=== PATIENT | female | born 1985 | race Hispanic/Latino ===

== ENCOUNTER 2023-10-03 20:40 | Emergency (ER) | payer OTHER ==
[~2023-10-03] VITALS: Ht 154.9 cm; Wt 109.8 kg
[2023-10-04] MEDS: ACETAMINOPHEN 325 MG TAB PO ONE (00:43)
[2023-10-04 00:49] LABS: BASOPHILS % 0.2 % (0.0-1.0); EOSINOPHILS # (AUTO) 0.1 (0.0-0.4); EOSINOPHILS % 1.3 % (0.0-6.0); HEMATOCRIT 40.2 % (34.2-44.1); HEMOGLOBIN 12.9 g/dL (12.0-16.0); LYMPHOCYTES # (AUTO) 2.5 (1.0-3.2); LYMPHOCYTES % 27.1 % (18.0-39.1); MEAN CORPUSCULAR HEMOGLOBIN 29.4 pg (28-32); MEAN CORPUSCULAR HGB CONC 32.1 g/dL (31-35); MEAN CORPUSCULAR VOLUME 91.6 fL (81-99); MONOCYTES # (AUTO) 0.6 (0.2-0.8); MONOCYTES % 6.2 % (4.4-11.3); PLATELET COUNT 203 x10e3/uL (140-360); RED BLOOD COUNT 4.39 x10e6/uL (3.6-5.1); RED CELL DISTRIBUTION WIDTH 14.9 % (11.7-14.4); WHITE BLOOD COUNT 9.19 x10e3/uL (4.8-10.8)
[2023-10-04 01:13] LABS: ANION GAP 11.7 mmol/L (8-16); CALCIUM 11.7 mg/dL (8.4-10.2); CREATININE, SERUM 0.81 mg/dL (0.57-1.11); POTASSIUM 3.7 mmol/L (3.5-5.1)
[2023-10-04 01:28] VITALS: PULSE 75; RESP 18; TEMP 98.3
[2023-10-04 01:40] VITALS: BP 129/71; PULSE 71; RESP 18; TEMP 98.2; O2SAT 98
== END 2023-10-04 01:30 | disposition home or self-care (01) ==
LOC: ER 20:48 → EDBD 20:48 → ER 10-04 01:30
DX: I89.0 Lymphedema, not elsewhere classified (principal); I10 Essential (primary) hypertension; E11.9 Type 2 diabetes mellitus without complications; E78.5 Hyperlipidemia, unspecified; K21.9 Gastro-esophageal reflux disease without esophagitis; Z85.41 Personal history of malignant neoplasm of cervix uteri
CPT/HCPCS: 36415; 80048; 85025; 93971; 99283